=== PATIENT | female | born 1990 | race Caucasian/White ===

== ENCOUNTER 2018-10-13 08:30 | Outpatient (CLI) | payer BC ==
--- NOTE | 2018-10-13 08:56 | RAD ---
3 views left ankle: 10/13/2018 COMPARISON: None HISTORY: Ankle injury in February, continued pain FINDINGS: No fracture or dislocation. No radiopaque foreign body or subcutaneous gas. Talar dome and ankle mortise appear intact. IMPRESSION: No acute findings.
--- NOTE | 2018-10-13 08:59 | RAD ---
3 views left foot: 10/13/2018 COMPARISON: None HISTORY: Rolled ankle in February, continued pain radiating down the left FINDINGS: No fracture or dislocation. No radiopaque foreign body or subcutaneous gas. There is degene rative change involving the midfoot. There is joint space narrowing subchondral sclerosis and osteophyte formation in the region of the talonavicular joint. IMPRESSION: No acute findings. Midfoot degenerative change. This mid foot degenerative changes advanc ed for a patient of this age. This could be related to prior trauma or possibly on the basis of tarsal coalition. Orthopedic consultation suggested.
== END 2018-10-13 08:31 | disposition home or self-care (01) ==
LOC: BICRAD 08:30
PROVIDERS: ATTEND Internal Medicine
DX: M25.572 Pain in left ankle and joints of left foot (principal); M79.672 Pain in left foot; G89.29 Other chronic pain; M19.072 Primary osteoarthritis, left ankle and foot

== ENCOUNTER 2020-01-22 15:22 | Outpatient (CLI) | payer BC ==
--- NOTE | 2020-01-22 15:53 | RAD ---
CERVICAL SPINE SERIES 3 VIEWS: Date: 01/22/2020 HISTORY: Paresthesia of arms. FINDINGS: Vertebral bodies are normal in height. Slight reversal of normal cervical curve could be positional a nd related to some spasm. Disc spaces are well preserved. Facets are in normal alignment. IMPRESSION: Essentially unremarkable cervical spine series. POS: HARINI
== END 2020-01-22 15:23 | disposition home or self-care (01) ==
LOC: BICRAD 15:22
PROVIDERS: ATTEND Physician Assistant
DX: R20.2 Paresthesia of skin (principal)
CPT/HCPCS: 72040

== ENCOUNTER 2020-05-30 14:54 | Outpatient (CLI) | payer BC | END 2020-05-30 14:55 | disposition home or self-care (01) | LOC: BICRAD 14:54 | PROVIDERS: ATTEND Internal Medicine | DX: R20.2 Paresthesia of skin (principal) | CPT/HCPCS: 71046 ==

== ENCOUNTER 2020-12-02 14:33 | Outpatient (CLI) | payer BC | END 2020-12-02 14:34 | disposition home or self-care (01) | LOC: BICMRI 14:33 | PROVIDERS: ATTEND Internal Medicine Endocrinology, Diabetes & Metabolism | DX: E22.1 Hyperprolactinemia (principal) | CPT/HCPCS: 70553 ==

== ENCOUNTER 2021-01-05 12:36 | Outpatient (CLI) | payer BC ==
[~2021-01-05 12:36] MED LIST: Iopamidol-370 76% 500 ML 1 ML ONE
== END 2021-01-05 12:37 | disposition home or self-care (01) ==
LOC: BICCT 12:36
PROVIDERS: ATTEND Internal Medicine Endocrinology, Diabetes & Metabolism
DX: E22.1 Hyperprolactinemia (principal); R59.0 Localized enlarged lymph nodes
CPT/HCPCS: 70491; Q9967

== ENCOUNTER 2022-02-28 20:14 | Emergency (ER) | payer BC ==
[2022-02-28] MEDS ORDERED: Ondansetron PF 4 MG/2 ML Vial ONE (22:00)
[2022-02-28 22:13] LABS: #Monocytes 0.5 thou/uL (0.11-0.59); %Basophils 0.2 % (0.0-1.0); %Eosinophils 0.2 % (0.0-10.0); %Lymphocytes 6.1 % (21.0-51.0); %Monocytes 3.4 % (0.0-10.0); %Neutrophils 90.1 % (42.0-75.0); Hemoglobin 13.5 g/dL (12.0-16.0); Mean Corpuscular Hemoglobin 28.7 pg (27.0-31.0); Mean Corpuscular Volume 81.9 fl (78.0-98.0); Mean Platelet Volume 7.2 fL (7.4-10.4); Platelet Count 358 10x3/uL (130-400); RBC Distribution Width 11.5 % (11.5-14.5); Red Blood Cell (RBC) Count 4.71 mill/uL (4.20-5.40); White Blood Cell (WBC) Count 15.6 10x3/uL (4.8-10.8)
[2022-02-28 22:32] LABS: ALT (SGPT) 11 U/L (8-55); AST (SGOT) 14 U/L (5-34); Albumin 3.9 g/dL (3.5-5.0); Alkaline Phosphatase 119 U/L (40-110); Anion Gap 14 mmol/L (10-20); BUN (Urea Nitrogen) 15 mg/dL (7.0-18.7); Bilirubin, Total 0.5 mg/dL (0.2-1.2); Calc. Creatinine Clearance 0 mL/min (70-130); Calcium 8.5 mg/dL (7.8-10.44); Carbon Dioxide 20 mmol/L (22-29); Chloride 107 mmol/L (98-107); Estimated GFR 104; Globulin 3.3 g/dL (2.4-3.5); Glucose 151 mg/dL (70-105); Lipase 9 U/L (8-78); Potassium 3.6 mmol/L (3.5-5.1); Protein, Total 7.2 g/dL (6.0-8.3); Sodium 137 mmol/L (136-145)
[2022-02-28 22:43] LABS: Bilirubin Negative (Negative); Blood, Urine Trace (Negative); Clarity Clear (Clear); Glucose, Urine (Dipstick) Normal (Negative); Ketone, Urine Trace mg/dL (Negative); Leukocyte 75 Leu/uL (Negative); Nitrite Negative (Negative); Protein, Urine (Dipstick) 30 mg/dL (Neg-Trace); RBC/HPF 0-3 HPF (0-3); Specific Gravity, Urine 1.033 (1.002-1.036); Urobilinogen Normal mg/dL (Less than 2); pH, Urine 5.5 (5.0-9.0)
[2022-02-28 22:47] LABS: Bacteria/HPF 1+ HPF (None Seen)
[2022-02-28 22:48] LABS: Pregnancy Test - Urine (BHCG) Negative (Negative); Pregu Control Background? CLEAR/WHITE (CLR/WHITE); Pregu Control Bar Appear? YES (CONTROL BAR); Specific Gravity 1.033 (1.002-1.036)
[2022-03-01] MEDS ORDERED: Ondansetron PF 4 MG/2 ML Vial ONE (02:02)
== END 2022-03-01 02:07 | disposition home or self-care (01) ==
LOC: ERS 20:14
DX: R11.10 Vomiting, unspecified (principal); K52.9 Noninfective gastroenteritis and colitis, unspecified; D72.829 Elevated white blood cell count, unspecified
CPT/HCPCS: 80053; 81003; 81015; 81025; 83690; 85025; 87086; 96374; 96376; J2405